=== PATIENT | male | born 1990 | race Caucasian/White ===

== ENCOUNTER 2020-09-17 22:32 | Emergency (ER) | payer SELFPAY ==
[2020-09-18 00:15] LABS: BASOPHIL 0.4 % (0-2); EOSINOPHIL 0.3 % (0-5); HCT 50.1 % (42.0-52.0); HGB 17.5 g/dl (13.2-18.0); LYMPHOCYTE 7.9 % (15-48); MCH 30.2 pg (25.0-31.0); MCHC 34.9 g/dL (32.0-36.0); MCV 86.4 fL (78.0-100.0); MPV 10.1 fL (6.0-9.5); NEUTROPHIL 84.8 % (41-80); NRBC 0; PLT 223 K/uL (150-400); RDW 12.7 % (11.5-14.0)
[2020-09-18 00:26] LABS: ALBUMIN 3.7 g/dL (3.4-5.0); BILIRUBIN - TOTAL 0.9 mg/dL (0.2-1.0); BUN/CREAT RATIO (CALC) 20.2 RATIO; CREATININE 1.04 mg/dL (0.67-1.17); GLOBULIN (CALCULATION) 3.2 g/dL; POTASSIUM 3.9 mmol/L (3.5-5.1); TOTAL PROTEIN 6.9 g/dL (6.4-8.2)
[2020-09-18 00:39] LABS: BILIRUBIN 1+ mg/dL (NEGATIVE); BLOOD 2+ Ery/uL (NEGATIVE); CLARITY CLEAR (CLEAR); COLOR YELLOW (YELLOW); GLUCOSE (U) NORMAL (NORMAL); LEUKOCYTES NEGATIVE Leu/uL (NEGATIVE); NITRITE NEGATIVE (NEGATIVE); PROTEIN NEGATIVE (NEGATIVE); SPECIFIC GRAVITY 1.025 (1.001-1.030); pH 5.5 (5.0-9.0)
[2020-09-18 00:50] LABS: CALCIUM OXALATE CRYSTALS TRACE
[2020-09-18] MEDS ORDERED: ONDANSETRON ODT4 MG PO (01:54)
[2020-09-18] MEDS ORDERED: PROTONIX 40MG T40 MG PO (01:54)
== END 2020-09-18 02:41 | disposition home or self-care (01) ==
LOC: FER 22:32
PROVIDERS: Emergency Medicine
DX: K29.01 Acute gastritis with bleeding (principal); Z20.822 Contact with and (suspected) exposure to COVID-19; Z86.711 Personal history of pulmonary embolism; Z86.718 Personal history of other venous thrombosis and embolism
CPT/HCPCS: 36415; 80053; 81001; 82150; 83690; 85025; C9113; J2405; J2550; U0002